=== PATIENT | male | born 1945 | race Caucasian/White ===

== ENCOUNTER → 2016-11-27 | Outpatient (CLI) | payer MEDICARE, OTHER ==
--- NOTE | 2016-11-27 10:31 | RADIOLOGY REPORT PS360 ---
EXAM: CERVICAL SPINE 4 OR 5 VIEWS HISTORY: CERVICALGIA ORDERING PHYSICIAN: Yane PAZ PATIENT AGE: 71 years COMPARISON: None FINDINGS: Normal alignment. No fracture or dislocation. No lytic or blastic change. There is straightening of the cervical lordosis. There is mild degenerative disc disease at C5-C6 and C6-C7 with minimal endplate osteophytes. There is mild foraminal narrowing on the right at C2-C3 and C6-C7 and on the left at C4-C5. Multilevel facet hypertrophic changes are noted. 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 These findings are slightly worse on today's exam than when compared to 07/27/2013
== END ==
LOC: RAD 09:15
DX: M54.2 Cervicalgia (principal)

== ENCOUNTER → 2016-12-07 | Outpatient (CLI) | payer MEDICARE, OTHER ==
--- NOTE | 2016-12-10 06:57 | RADIOLOGY REPORT PS360 ---
MRI-C-SPINE W/O, MRI-3D RENDERING/MYELOGRAM HISTORY: Neck pain with stiff neck, degenerative disc disease, cervicalgia SPONDYLOSIS OF CERVICAL SPINE ORDERING PHYSICIAN: Earl Bravo MD PATIENT AGE: 71 years COMPARISON: Radiograph of 11/27/2016 TECHNIQUE: Standard multiplanar multiecho sequences are performed without contrast. 3-D MIP and myelographic images are also rendered and reviewed FINDINGS: Generalized motion artifact does obscure fine detail. 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 The cranial cervical junction has an unremarkable appearance. There is straightening of the cervical lordosis and there is some increased T2 signal at the base of the odontoid posteriorly which is nonspecific. C2-C3: Mild right-sided foraminal narrowing from uncovertebral hypertrophy. C3-C4: Mild concentric bulging disc with prominence of the posterior longitudinal ligament C4-C5: Unremarkable. C5-C6: Degenerative disc disease with mild bulging disc. Small right paracentral disc protrusion with mild right lateral recess narrowing. C6-C7: Degenerative disc disease with bulging disc along with bilateral foraminal narrowing from facet and uncovertebral hypertrophy. C7-T1: Unremarkable. IMPRESSION: 1. Spondylosis of the cervical spine at multiple levels as described above. Please see above for detailed description. 2. Mild right-sided foraminal narrowing C2-C3 and mild bilateral foraminal narrowing at C6-C7. 3. Minimal right paracentral disc protrusion at C5-C6
== END ==
LOC: RAD 13:40
DX: M47.812 Spondylosis without myelopathy or radiculopathy, cervical region (principal); M50.30 Other cervical disc degeneration, unspecified cervical region